=== PATIENT | male | born 1975 | race Caucasian/White ===

== ENCOUNTER 2017-02-17 13:39 | Emergency (ER) | payer MEDICAID, OTHER ==
--- NOTE | 2017-02-17 13:54 | ED Physician Chart ---
Chief Complaint/HPI - Patient Information Date Seen:: 02/17/17 Time Seen:: 13:48 Chief Complaint:: Pt is here for a check up. History of Present Illness:: Brought in by private auto because of general malaise for one day. No fever. No bodily pain or ache. No dyspnea. Pt has been taking po well without N/V/D. No wt loss. Pt has been ambulatory without assistance without difficulty. No lightheadedness. Pt denies any depressed mood. No hallucination. No anorexia. Pt states that his work has been quite busy lately with long work hours, and he has experienced a lot of stress at work. Allergies:: Allergies Allergy/AdvReac Type Severity Reaction Status Date / Time No Known Allergies Allergy Verified 02/17/17 13:45 Vitals:: see Nurse Note. Historian:: Patient Family MD/PCP:: Unknown LMP:: N/A Review:: Nurse's Note Reviewed Review of Systems - Review of Systems General/Constitutional: No fever, No chills, No weight loss, No weakness, No diaphoresis, No edema, No loss of appetite Skin: No skin lesions, No rash, No bruising Head: No headache, No light-headedness Eyes: No loss of vision, No pain, No diplopia ENT: No earache, No nasal drainage, No sore throat, No tinnitus Neck: No neck pain, No swelling, No thyromegaly, No stiffness, No mass noted Cardio Vascular: No chest pain, No palpitations, No PND, No orthopnea, No edema Pulmonary: No SOB, No cough, No sputum, No wheezing GI: No nausea, No vomiting, No diarrhea, No pain, No melena, No hematochezia, No constipation, No hematemesis G/U: No dysuria, No frequency, No hematuria Musculoskeletal: No bone or joint pain, No back pain, No muscle pain Endocrine: No polyuria, No polydipsia Psychiatric: No prior psych history, No depression, No anxiety, No suicidal ideation, No homicidal ideation, No auditory hallucination, No visual hallucination Hematopoietic: No bruising, No lymphadenopathy Allergic/Immuno: No urticaria, No angioedema Neurological: No syncope, No focal symptoms, No weakness, No paresthesia, No headache, No seizure, No dizziness, No confusion, No vertigo Past Medical History - Past Medical History Past Medical History: No significant medical hx Family History: HTN (mother), Cancer (father) Social History: Smoker (About one pack per month. Pt has been informed about health risks associated with tobacco use and has been advised to quit. Pt acknowledges understanding.), No Alcohol, No Drug Use, , Employed, Other (lives with his .) Employment:: maintenance service technician. Surgical History: Hernia ( R inguinal hernia repair.) Psychiatricy History: None Medication: None Family Medical History - Family Member Aunt Ethnicity: Living Status: Still Living Hx Family Diabetes: Yes Physical Exam - Physical Examination General/Constitutional: Awake, Well-developed, well-nourished, Alert, No distress, GCS 15, Non-toxic appearing, Ambulatory Other Gen/Cons comments:: Breathes comfortably, speaks clearly, interacts normally, and ambulates without assistance without difficulty. Head: Atraumatic Eyes: Lids, conjuctiva normal, PERRL, EOMI Other Eyes comments:: Normal pink conjunctiva. Skin: Nl inspection, No rash, No skin lesions, No ecchymosis, Well hydrated, No lymphadenopathy ENMT: External ears, nose nl, Nasal exam nl, Lips, teeth, gums nl, Oropharynx nl Neck: Nontender, Full ROM w/o pain, No JVD, No nuchal rigidity, No mass, No stridor Other Neck comments:: No thyromegaly or nodularity. Respiratory: Nl effort/Exclusion Cardio Vascular: RRR, No murmur, gallop, rubs, NL S1 S2 GI: No tenderness/rebounding/guarding, No organomegaly, Normal BS's, Nondistended, No mass/bruits Other GI comments:: Obese but soft. : No CVA tenderness Extremities: No tenderness or effusion, Full ROM, normal strength in all extremities, No edema, Normal digits & nails Neuro/Psych: Alert/oriented (oriented x 3), Judgement/insight normal, Mood normal, Normal gait, No focal deficits Other Neuro/Psych comments:: CN II to XII are grossly intact. Cerebellar exam (F to N, ADI): Normal. Pt has normal affect and interacts appropriately. Misc: normal gait, Normal back, No paraspinal tenderness ED Septic Shock - . Is Septic Shock (SBP<90, OR Lactate>4 mmol\L) present?: No Reassessment (Disposition) - Reassessment Reassessment:: 1430 Discussed with pt at length, pt stated that he just wants to make sure that he does not have diabetes. Pt's Accuchek here today is 91. Pt now feels much better and does not want further lab studies or evaluation. Pt requests to go home now and does not want further observation/management in hospital. Aftercare instructions have been given. Reassessment Condition:: Improved - Diagnosis Diagnosis:: Well male adult with recent life stressors, stable. - Aftercare/Follow up Instructions Aftercare/Follow-Up Instructions:: Refer to Discharge Instructions Notes:: Bedrest for today. Relaxation techniques given. F/U with Dr. Vincent or PCP of pt's choice in one day for recheck. Return to ER immediately if condition worsens or if any further questions/problems. Medication Prescribed:: None - Patient Disposition Discharge/Transfer:: Home Time:: 14:38 Condition at Disposition:: Stable, Improved
== END 2017-02-17 14:43 | disposition short-term general hospital (02) ==
LOC: ER 13:39
DX: Z73.3 Stress, not elsewhere classified (principal); R53.81 Other malaise; F17.210 Nicotine dependence, cigarettes, uncomplicated
CPT/HCPCS: 82948-90